=== PATIENT | female | born 1975 | race Caucasian/White ===

== ENCOUNTER 2018-03-30 12:30 | Inpatient (IN) | payer OTHER ==
[~2018-03-30] VITALS: Ht 160 cm; Wt 63.5 kg
[2018-04-05] MEDS ORDERED: NORFLEX100MG PO (10:04)
[2018-04-05] MEDS ORDERED: RECTICARE30 GM TOP (10:04)
[2018-04-05] MEDS ORDERED: ULTRACET PO (10:04)
[2018-04-05] MEDS ORDERED: NEURONTIN300 MG PO (11:44)
== END 2018-04-05 10:40 | disposition home or self-care (01) | DRG 331 ==
LOC: O/R 04-03 05:50 → SURH 04-03 05:50
PROVIDERS: Surgery
PROC: 06BY0ZC Excision of Hemorrhoidal Plexus, Open Approach (ICD-10-PCS; 2018-04-03)
PROC: 0JQC0ZZ Repair Pelvic Region Subcutaneous Tissue and Fascia, Open Approach (ICD-10-PCS; principal; 2018-04-03 13:30)
DX: K64.4 Residual hemorrhoidal skin tags (principal); N81.6 Rectocele

== ENCOUNTER 2018-10-26 07:07 | Day surgery (SDC) | payer OTHER ==
[~2018-10-26 07:07] MED LIST: NEURONTIN300 MG PO; NORFLEX100MG PO; RECTICARE30 GM TOP; ULTRACET PO
== END 2018-10-26 13:30 | disposition home or self-care (01) ==
LOC: AMB-ENDOS 07:07
DX: N81.6 Rectocele (principal)